=== PATIENT | male | born 1990 | race Caucasian/White ===

== ENCOUNTER 2016-03-21 17:03 | Emergency (ER) | payer OTHER ==
[2016-03-21] MEDS ORDERED: CLINDAMYCIN HCL 150 MG CAPSULE ONE (18:53)
[2016-03-21] MEDS ORDERED: ONDANSETRON 4 MG ODT TAB ONE (18:54)
== END 2016-03-21 19:30 | disposition home or self-care (01) ==
LOC: ED 17:03
DX: K08.89 Other specified disorders of teeth and supporting structures (principal)
CPT/HCPCS: 99282; 99283; A9270 ×2